=== PATIENT | male | born 1960 | race Caucasian/White ===

== ENCOUNTER 2021-01-31 23:06 | Inpatient (IN) ==
[2021-01-31] MEDS ORDERED: NITROGLYCERIN DRIP 50 MG/250 ML BOTTLE IV ONE (23:13)
[2021-01-31] MEDS ORDERED: MIDAZOLAM 2 MG/2 ML VIAL ONE (23:14)
[2021-01-31] MEDS ORDERED: VERAPAMIL 5 MG/2 ML VIAL ONE (23:14)
[2021-01-31] MEDS ORDERED: HYDROmorphone 2 MG/1 ML VIAL ONE (23:14)
[2021-01-31] MEDS ORDERED: ATROPINE 1 MG/10 ML SYRINGE ONE (23:30)
[2021-01-31] MEDS ORDERED: ENOXAPARIN 30 MG/0.3 ML SYRINGE ONE (23:34)
[2021-01-31] MEDS ORDERED: TIROFIBAN 5,000 MCG/100 ML PREMIX IV SCH (23:45)
[2021-01-31] MEDS ORDERED: PRASUGREL 10 MG TABLET ONE (23:56)
[2021-01-31] MEDS ORDERED: ASPIRIN 325 MG TABLET ONE (23:56)
[2021-01-31] MEDS ORDERED: MAGNESIUM SULF RIDER 2 GM/50 ML PREMIX IV PRN (23:57)
[2021-01-31] MEDS ORDERED: MAGNESIUM SULF RIDER 4 GM/100 ML PREMIX IV PRN (23:57)
[2021-01-31] MEDS ORDERED: DOCUSATE SODIUM 100 MG CAPSULE PO PRN (23:57)
[2021-02-01 01:28] LABS: Basophils % 0.2 % (0.0-0.8); Eosinophils # 0.1 10*3/uL (0.0-0.87); Eosinophils % 0.8 % (0.00-10.9); Hematocrit 53.4 VOL% (42.0-52.0); Hemoglobin 16.4 GM/DL (14.0-18.0); Immature Granulocytes % 1.1 %; Lymphocytes # 2.1 10*3/uL (1.4-4.0); Mean Corpuscular HGB Conc 30.7 GM/DL (32-36); Mean Corpuscular Volume 101.9 FL (87-102); Mean Platelet Volume 11.1 FL (9.6-12.0); Monocytes % 2.7 % (1.7-12.7); Neutrophils % 84.2 % (38.7-73.9); Platelet Count 242 T/CUMM (130-400); Red Blood Count 5.24 MC/CUMM (3.8-5.5); Red Cell Distribution Width 13.1 % (9.3-17.3); White Blood Count 18.6 T/CUMM (4-12)
[2021-02-01 01:47] LABS: Risk Ratio 7.42; VLDL Cholesterol 77.8 MG/DL
[2021-02-01 01:51] LABS: Albumin 3.4 G/DL (3.4-5.0); Bilirubin,Total 1.1 MG/DL (0.20-1.00); Calcium 8.1 MG/DL (8.5-10.1); High Sensitive Troponin I* 11189.4 ng/L (0-78); Osmolality,Calculated 273.1 MOS/KG (273-304); Potassium 3.5 MMOL/L (3.5-5.1); Total Protein 6.7 G/DL (6.4-8.2)
[2021-02-01 07:52] LABS: CKMB % 12.3 %
[2021-02-01 08:04] LABS: High Sensitive Troponin I* 46730.8 ng/L (0-78)
[2021-02-01] MEDS: PRASUGREL 10 MG TABLET PO SCH (08:34)
[2021-02-01] MEDS: carvediloL 6.25 MG TABLET PO SCH ×2 (08:34→20:17)
[2021-02-01] MEDS: LOSARTAN 50 MG TABLET PO SCH (08:34)
[2021-02-01] MEDS: ASPIRIN EC 81 MG TABLET PO SCH (08:34)
[2021-02-01 13:19] LABS: Barbiturates Screen,Urine Negative (Negative); Benzodiazepines Screen,Urine Positive (Negative); Cannabinoid Screen,Urine Negative (Negative); Opiate Screen,Urine Positive (Negative); Phencyclidine Screen,Urine Negative (Negative)
[2021-02-01 16:15] LABS: CKMB % 10.8 %
[2021-02-01 16:42] LABS: High Sensitive Troponin I* 39911.4 ng/L (0-78)
[2021-02-01] MEDS ORDERED: ROSUVASTATIN 20 MG TABLET PO SCH (21:00)
[2021-02-02] MEDS: ASPIRIN EC 81 MG TABLET PO SCH (08:26)
[2021-02-02] MEDS: PRASUGREL 10 MG TABLET PO SCH (08:26)
[2021-02-02] MEDS: carvediloL 6.25 MG TABLET PO SCH (08:27)
[2021-02-02] MEDS: LOSARTAN 50 MG TABLET PO SCH (08:27)
[2021-02-02 08:57] LABS: Basophils # 0.1 10*3/uL (0.0-0.2); Basophils % 0.7 % (0.0-0.8); Eosinophils # 0.6 10*3/uL (0.0-0.87); Eosinophils % 8.4 % (0.00-10.9); Hematocrit 43.1 VOL% (42.0-52.0); Immature Granulocytes % 0.1 %; Immature Granulocytes Absolute 0.01 #; Lymphocytes # 2.1 10*3/uL (1.4-4.0); Mean Corpuscular HGB Conc 32.9 GM/DL (32-36); Mean Corpuscular Volume 96.2 FL (87-102); Mean Platelet Volume 11.1 FL (9.6-12.0); Monocytes % 5.2 % (1.7-12.7); Neutrophils % 57.6 % (38.7-73.9); Platelet Count 176 T/CUMM (130-400); Red Blood Count 4.48 MC/CUMM (3.8-5.5); Red Cell Distribution Width 13.3 % (9.3-17.3); White Blood Count 7.5 T/CUMM (4-12)
[2021-02-02 09:08] LABS: Hemoglobin 14.2 GM/DL (14.0-18.0)
[2021-02-02 09:14] LABS: Calcium 8.3 MG/DL (8.5-10.1); Osmolality,Calculated 282.4 MOS/KG (273-304); Potassium 3.9 MMOL/L (3.5-5.1)
[2021-02-02 12:00] VITALS: BP 110/69
== END 2021-02-02 14:47 | disposition home or self-care (01) | DRG 247 ==
LOC: N.ICU 23:06 → N.CL 23:06 → N.ICU 23:11 → N.TELES 02-01 12:27
PROVIDERS: ADMIT Internal Medicine Cardiovascular Disease; ATTEND Internal Medicine Cardiovascular Disease